=== PATIENT | male | born 2000 | race Caucasian/White ===

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

== ENCOUNTER 2021-01-02 13:12 | Emergency (ER) | payer OTHER ==
[2021-01-02 14:21] VITALS: BP 134/96; PULSE 100; RESP 20; TEMP 98.5
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
--- NOTE | 2021-01-02 15:05 | XR ---
Result: History: Pain. Comparison: None available. Technique: 3 views of the left wrist. Findings: There is nondisplaced intra-articular fracture of the distal radius metaphysis. The remaining visual ized osseous structures are in anatomic alignment. Otherwise the joint spaces are preserved. Impression: Distal radius fracture.
[2021-01-02] MEDS ORDERED: ACET/COD 300 MG/30 MG STARTER PACK 6 TAB BTL PO STA (16:07)
[2021-01-02] MEDS ORDERED: KETOROLAC 15 MG/ML 1 ML VIAL IM STA (16:07)
[2021-01-02] MEDS ORDERED: MORPHINE SULFATE 4 MG/ML SYRINGE IM STA (16:13)
== END 2021-01-02 16:47 | disposition home or self-care (01) ==
LOC: EC 13:12
DX: S52.502A Unspecified fracture of the lower end of left radius, initial encounter for closed fracture (principal); F17.200 Nicotine dependence, unspecified, uncomplicated; V18.0XXA Pedal cycle driver injured in noncollision transport accident in nontraffic accident, initial encounter; Y93.55 Activity, bike riding
CPT/HCPCS: 29125; 96372; 99283; 73110; J2270

== ENCOUNTER 2021-12-17 22:57 | Emergency (ER) | payer OTHER ==
[2021-12-17 23:11] VITALS: TEMP 99.5
[2021-12-17] MEDS ORDERED: ONDANSETRON 4 MG/2 ML VIAL IVP STA (23:14)
[2021-12-17] MEDS ORDERED: SODIUM CHLORIDE 0.9% 1,000 ML IV STA ×2 (23:14)
[2021-12-17] MEDS ORDERED: cloNIDine 0.2 MG/24HR PATCH TRANSDERM SCH (23:15)
--- NOTE | 2021-12-17 23:31 | ED ---
Chest Pain HPI - General Chief Complaint: Chest Pain Stated Complaint: Chest Pain Time Seen by Provider: 12/17/21 23:07 Source: patient, RN notes reviewed, old records reviewed Mode of arrival: EMS Limitations: no limitations - History of Present Illness Initial Comments: This is a 21-year-old male to the emergency department for evaluation today. Patient is safe for evaluation of chest pain. Chest pain is relatively atypical also palpitations. Patient has no medical history takes no medications patient is recently just stopped taking heroin. Otherwise no travel history no sick contacts no fevers no cough no congestion no other complaints MD Complaint: chest pain -: hour(s) Onset: during rest, during exertion Pain Location: substernal Pain Radiation: none Severity: mild Severity scale (1-10): 2 Quality: tightness, dull Consistency: intermittent Improves With: nothing Worsens With: nothing Context: other (none) Anginal Symptoms: other (none) Other Symptoms: palpitations Treatments Prior to Arrival: none - Related Data Home Medications Medication Instructions Recorded Confirmed Acetaminophen [Tylenol Extra 1,000 mg PO BID PRN 06/15/19 06/26/19 Strength] Allergies Allergy/AdvReac Type Severity Reaction Status Date / Time No Known Allergies Allergy Verified 01/02/21 14:21 Review of Systems ROS Statement: Those systems with pertinent positive or pertinent negative responses have been documented in the HPI. ROS Other: All systems not noted in ROS Statement are negative. EKG Findings - EKG Comments: EKG Findings:: EKG is sinus rhythm 87 ND 137 QRS 101, QTC 388 Past Medical History Past Medical History: No Reported History Additional Past Medical History / Comment(s): SUICIDAL THOUGHTS History of Any Multi-Drug Resistant Organisms: None Reported Past Surgical History: No Surgical Hx Reported Past Psychological History: Anxiety, Depression, PTSD Smoking Status: Current every day smoker Past Alcohol Use History: None Reported Past Drug Use History: None Reported General Exam General appearance: alert, in no apparent distress Head exam: Present: atraumatic, normocephalic, normal inspection Eye exam: Present: normal appearance, PERRL, EOMI. Absent: scleral icterus, conjunctival injection, periorbital swelling ENT exam: Present: normal exam, mucous membranes moist Neck exam: Present: normal inspection. Absent: tenderness, meningismus, lymphadenopathy Respiratory exam: Present: normal lung sounds bilaterally. Absent: respiratory distress, wheezes, rales, rhonchi, stridor Cardiovascular Exam: Present: regular rate, normal rhythm, normal heart sounds. Absent: systolic murmur, diastolic murmur, rubs, gallop, clicks GI/Abdominal exam: Present: soft, normal bowel sounds. Absent: distended, tenderness, guarding, rebound, rigid Extremities exam: Present: normal inspection, full ROM, normal capillary refill. Absent: tenderness, pedal edema, joint swelling, calf tenderness Back exam: Present: normal inspection Neurological exam: Present: alert, oriented X3, CN II-XII intact Psychiatric exam: Present: normal affect, normal mood Skin exam: Present: warm, dry, intact, normal color. Absent: rash Course Vital Signs 12/17/21 12/17/21 23:06 23:10 Temperature 99.5 F 99.5 F Pulse Rate 99 101 H Respiratory 16 18 Rate Blood Pressure 130/74 130/74 O2 Sat by Pulse 99 99 Oximetry - Reevaluation(s) Reevaluation #1: 12/18/21 00:55 Medical record is reviewed Reevaluation #2: 12/18/21 00:56 Patient informed of results and questions answered Reevaluation #3: 12/18/21 00:56 Patient has no other significant complaints Reevaluation #4: 12/18/21 00:56 Patient informed of results and questions answered Chest Pain MDM - MDM 21-year-old male to the emergency department for evaluation of chest pain atypical in nature (starting to come off heroin. No shortness of breath no fevers no other complaints negative testing here in the ER patient can be discharged home Disposition Clinical Impression: Chest pain, Atypical chest pain Disposition: HOME SELF-CARE Condition: Good Instructions (If sedation given, give patient instructions): Chest Pain (ED) Is patient prescribed a controlled substance at d/c from ED?: No Referrals: None,Stated [Primary Care Provider] - 1-2 days
[2021-12-17 23:33] LABS: Basophils # (A) 0.1 k/uL (0-0.2); Basophils % (A) 1 %; Eosinophils # (A) 0.3 k/uL (0-0.7); Eosinophils % (A) 2 %; HCT 44.8 % (39.0-53.0); HGB 14.9 gm/dL (13.0-17.5); Lymphocytes # (A) 4.5 k/uL (1.0-4.8); Lymphocytes % (A) 34 %; MCH 27.7 pg (25.0-35.0); MCHC 33.3 g/dL (31.0-37.0); MCV 83.2 fL (80.0-100.0); Mean Platelet Volume 8.6; Monocytes # (A) 0.6 k/uL (0-1.0); Monocytes % (A) 4 %; Neutrophils # (A) 7.5 k/uL (1.3-7.7); Neutrophils % (A) 57 %; Platelet Count 253 k/uL (150-450); RBC 5.38 m/uL (4.30-5.90); RDW 13.2 % (11.5-15.5); WBC 13.2 k/uL (4.0-11.0)
[2021-12-17 23:44] LABS: ALT 28 U/L (4-49); AST 21 U/L (17-59); African American GFR (CKD) >90 (>60 ml/min/1.73 sqM); Albumin 4.3 g/dL (3.5-5.0); Alkaline Phosphatase 49 U/L (38-126); Anion Gap 9 mmol/L; Blood Urea Nitrogen 12 mg/dL (9-20); Calcium 9.5 mg/dL (8.4-10.2); Carbon Dioxide 26 mmol/L (22-30); Chloride 107 mmol/L (98-107); Glucose 75 mg/dL (74-99); Non-African American GFR(CKD) >90 (>60 ml/min/1.73 sqM); Phosphorus 4.7 mg/dL (2.5-4.5); Potassium 4.2 mmol/L (3.5-5.1); Sodium 142 mmol/L (137-145); Total Bilirubin 0.4 mg/dL (0.2-1.3); Total Protein 7.1 g/dL (6.3-8.2)
[2021-12-17 23:55] LABS: Partial Thromboplastin Time 26.6 sec (22.0-30.0); Prothrombin Time 10.8 sec (9.0-12.0)
[2021-12-18 01:03] VITALS: BP 115/61; PULSE 86; RESP 16
== END 2021-12-18 01:17 | disposition home or self-care (01) ==
LOC: EC 22:57
DX: R07.89 Other chest pain (principal); F17.200 Nicotine dependence, unspecified, uncomplicated
CPT/HCPCS: 36415; 93005; 83880; 80053; 83605; 83735; 84100; 84484; 85025; 85610; 85730; 99285; 96374; 96361; J2405

== ENCOUNTER → 2022-06-28 | Outpatient (CLI) | payer OTHER | END | disposition home or self-care (01) | LOC: LABWHC1 11:12 | PROVIDERS: ATTEND Internal Medicine | DX: R53.83 Other fatigue (principal); R68.82 Decreased libido | CPT/HCPCS: 36415; 84403 ==

== ENCOUNTER 2024-07-04 16:08 | Emergency (ER) | payer OTHER ==
[2024-07-04 16:39] VITALS: RESP 18; TEMP 98.7
[2024-07-04] MEDS: LIDOCAINE 1% INJ 10MG/ML (20 ML MDV) SQ ONE (16:49)
--- NOTE | 2024-07-04 17:01 | ED ---
Wound/Laceration HPI - General Chief Complaint: Wound/Laceration Stated Complaint: Right hand finger lac Time Seen by Provider: 07/04/24 17:00 Source: patient, RN notes reviewed Mode of arrival: ambulatory Limitations: no limitations - History of Present Illness Initial Comments: 24-year-old male presented to the ER with a chief complaint of laceration. Patient was using a mandolin slicer to make himself a meal this evening. He states he accidentally cut his right thumb. He reports a laceration to his right distal thumb. No limited range of motion. Tetanus is up-to-date. No other injuries or complaints. - Related Data Home Medications Medication Instructions Recorded Confirmed Acetaminophen [Tylenol Extra 1,000 mg PO BID PRN 06/15/19 06/26/19 Strength] Allergies Allergy/AdvReac Type Severity Reaction Status Date / Time No Known Allergies Allergy Verified 01/02/21 14:21 Review of Systems ROS Statement: Those systems with pertinent positive or pertinent negative responses have been documented in the HPI. ROS Other: All systems not noted in ROS Statement are negative. Past Medical History Past Medical History: No Reported History Additional Past Medical History / Comment(s): SUICIDAL THOUGHTS History of Any Multi-Drug Resistant Organisms: None Reported Past Surgical History: No Surgical Hx Reported Past Psychological History: Anxiety, Depression, PTSD Smoking Status: Vaper Past Alcohol Use History: None Reported Past Drug Use History: None Reported General Exam Limitations: no limitations General appearance: alert, in no apparent distress Respiratory exam: Present: normal lung sounds bilaterally. Absent: respiratory distress, wheezes, rales, rhonchi, stridor Cardiovascular Exam: Present: regular rate, normal rhythm, normal heart sounds. Absent: systolic murmur, diastolic murmur, rubs, gallop, clicks Extremities exam: Present: normal inspection, full ROM, normal capillary refill. Absent: tenderness, pedal edema, joint swelling, calf tenderness Neurological exam: Present: alert, oriented X3, CN II-XII intact Skin exam: Present: warm, dry, intact, normal color, other (2 cm laceration to distal end of right thumb. No active bleeding. Brisk cap refill.). Absent: rash Course Vital Signs 07/04/24 16:35 Temperature 98.7 F Pulse Rate 98 Respiratory 18 Rate Blood Pressure 129/82 O2 Sat by Pulse 98 Oximetry Procedures - Laceration Laceration #1 Consent Obtained: verbal consent Indication: laceration Site: hand Size (cm): 2 Description: linear Depth: simple, single layer Anesthetic Used: lidocaine 1%, without epi Anesthesia Technique: local infiltration Amount (mls): 1 Pre-repair: wound explored, irrigated extensively, deep structures intact Type of Sutures: nylon Size of Sutures: 4-0 Number of Sutures: 2 Technique: simple, interrupted Patient Tolerated Procedure: well Medical Decision Making - Medical Decision Making Was pt. sent in by a medical professional or institution (MIGNON Bang, CLASSIFICATION COUNSELOR, urgent care, hospital, or halfway...) When possible be specific @ -No Did you speak to anyone other than the patient for history (EMS, parent, family, police, friend...)? What history was obtained from this source @ -No Did you review nursing and triage notes (agree or disagree)? Why? @ -I reviewed and agree with nursing and triage notes Were old charts reviewed (outside hosp., previous admission, EMS record, old EKG, old radiological studies, urgent care reports/EKG's, halfway records)? Report findings @ -No old charts were reviewed Differential Diagnosis (chest pain, altered mental status, abdominal pain women, abdominal pain men, vaginal bleeding, weakness, fever, dyspnea, syncope, h eadache, dizziness, GI bleed, back pain, seizure, CVA, palpatations, mental health, musculoskeletal)? @ -Laceration, abrasion, contusion, avulsion, foreign body this list is not meant to be all-inclusive EKG interpreted by me (3pts min.). @ -None done X-rays interpreted by me (1pt min.). @ -None done CT interpreted by me (1pt min.). @ -None done U/S interpreted by me (1pt. min.). @ -None done What testing was considered but not performed or refused? (CT, X-rays, U/S, labs)? Why? @ -None What meds were considered but not given or refused? Why? @ -None Did you discuss the management of the patient with other professionals (professionals i.e. MIGNON Bang, CLASSIFICATION COUNSELOR, lab, RT, psych nurse, manager social services, foundry molder, teacher, tactical debriefer officer, family independence case manager)? Give summary @ -No Was smoking cessation discussed for >3mins.? @ -No Was critical care preformed (if so, how long)? @ -No Were there social determinants of health that impacted care today? How? (Homelessness, low income, unemployed, alcoholism, drug addiction, transportation, low edu. Level, literacy, decrease access to med. care, care home, rehab)? @ -No Was there de-escalation of care discussed even if they declined (Discuss DNR or withdrawal of care, Hospice)? DNR status @ -No What co-morbidities impacted this encounter? (DM, HTN, Smoking, COPD, CAD, Cancer, CVA, ARF, Chemo, Hep., AIDS, mental health diagnosis, sleep apnea, morbid obesity)? @ -None Was patient admitted / discharged? Hospital course, mention meds given and route, prescriptions, significant lab abnormalities, going to OR and other pertinent info. @ -Discharge. 24-year-old male presented the ER with chief complaint of laceration. History and physical exam completed. Vitals within normal meds. Exam remarkable for a 2 cm laceration to right distal thumb. No active bleeding. Right upper extremity neurovascular intact no focal bony tenderness. Wound closed, see note above. Patient's tetanus is up-to-date. Advised suture removal in 10 to 14 days. Suture care and return parameters discussed. Patient discharged in stable condition with follow-up to PCP. Patient verbally expressed understanding agree with care plan. Case discussed with the attending of Dr. Pedro. Undiagnosed new problem with uncertain prognosis? @ -No Drug Therapy requiring intensive monitoring for toxicity (Heparin, Nitro, Insulin, Cardizem)? @ -No Were any procedures done? @ -No Diagnosis/symptom? @ -Laceration Acute, or Chronic, or Acute on Chronic? @ -Acute Uncomplicated (without systemic symptoms) or Complicated (systemic symptoms)? @ -Uncomplicated Side effects of treatment? @ -No Exacerbation, Progression, or Severe Exacerbation? @ -No Poses a threat to life or bodily function? How? (Chest pain, [place], [place], pneumonia, PE, COPD, DKA, ARF, appy, cholecystitis, CVA, Diverticulitis, Homicidal, Suicidal, threat to staff... and all critical care pts) @ -No Disposition Clinical Impression: Laceration Disposition: HOME SELF-CARE Condition: Stable Instructions (If sedation given, give patient instructions): Care For Your Stitches (ED) Additional Instructions: Have sutures removed in 10 to 14 days. Monitor for signs infection including surrounding redness, swelling or drainage. Follow-up with PCP. Return to the ER for any new or worsening concerns. Is patient prescribed a controlled substance at d/c from ED?: No Referrals: John Mayer MD [Primary Care Provider] - 1-2 days Time of Disposition: 17:01
[2024-07-04 17:10] VITALS: BP 124/84; PULSE 80
== END 2024-07-04 17:10 | disposition home or self-care (01) ==
LOC: EC 16:08
CPT/HCPCS: 12001; 99282